=== PATIENT | male | born 1985 | race Two or more races ===

== ENCOUNTER 2016-11-21 15:11 | Emergency (ER) | payer SELFPAY ==
[~2016-11-21] VITALS: Ht 160 cm; Wt 63.5 kg
[2016-11-21 15:22] VITALS: BP 135/84
--- NOTE | 2016-11-21 15:51 | PHYS DOC ---
Past Medical History Past Medical History: No Pertinent History Additional Information: nonsmoker Alcohol Use: None Drug Use: None Adult General Chief Complaint Chief Complaint: EARACHE/EAR PAIN [facility] HPI Patient is a 31 year old male who presents with right ear pain and bilateral eye redness for 4 days. He reports a burning sensation in the eyes and clear drainage from the eyes. He denies fevers, sore throat, nasal congestion, cough, or vision changes. He denies any known sick contacts. He does not have a PCP. Review of Systems Review of Systems Constitutional: Denies fever or chills. [] Eyes: Denies change in visual acuity. Reports bilateral eye redness and pain. HENT: Denies nasal congestion or sore throat. Reports right ear pain. Respiratory: Denies cough or shortness of breath. [] Cardiovascular: Denies chest pain, palpitations or edema. [] GI: Denies abdominal pain, nausea, vomiting, bloody stools or diarrhea. [] Musculoskeletal: Denies back pain or joint pain. [] Integument: Denies rash or skin lesions. [] Neurologic: Denies headache, focal weakness or sensory changes. [] All systems reviewed and negative unless otherwise stated in the HPI. Allergies Allergies Allergies Coded Allergies Type Severity Reaction Last Updated Verified No Known Drug Allergies 11/21/16 No Physical Exam Physical Exam Constitutional: Well developed, well nourished, no acute distress, non-toxic appearance. [] HENT: Normocephalic, atraumatic, bilateral external ears normal, oropharynx moist, no oral exudates, nose normal. Bilateral TMs occluded by cerumen. Bilateral ear canals are otherwise clear of drainage. There is no posterior pharyngeal erythema or tonsillar edema. There is not significant swelling of the nasal turbinates. Eyes: PERRLA, EOMI, no discharge. Mild bilateral conjunctival injection. Neck: Normal range of motion, no tenderness, supple, no stridor. [] Cardiovascular:Heart rate regular rhythm, no murmur [] Lungs & Thorax: Bilateral breath sounds clear to auscultation [] Skin: Warm, dry, no erythema, no rash. [] Neurologic: Alert and oriented X 3, normal motor function, normal sensory function, no focal deficits noted. [] Psychologic: Affect normal, judgement normal, mood normal. [] EKG EKG [] Radiology/Procedures Radiology/Procedures [] Course & Med Decision Making Course & Med Decision Making Pertinent Labs and Imaging studies reviewed. (See chart for details) The patient presents with right ear pain. On exam, both TMs are occluded by cerumen. ED RN irrigated the ears to remove the cerumen. Reexamination after cerumen removal reveals left TM without erythema or bulging. The canal is not excoriated. The right TM is erythematous and bulging with mild excoriation of the right ear canal. The patient reports improved pain and hearing as well. He is discharged with prescription for amoxicillin. Return precautions were discussed. He verbalizes understanding and agrees with plan. Dragon Disclaimer Dragon Disclaimer This electronic medical record was generated, in whole or in part, using a voice recognition dictation system. Departure Departure Impression: Primary Impression: Otitis media Additional Impression: Cerumen impaction Disposition: 01 HOME, SELF-CARE Condition: IMPROVED Patient Instructions: Cerumen Impaction, Otitis Media, Adult, [id number] Additional Instructions: Please complete all of the prescribed antibiotics, even if you are feeling better. Return to the emergency department if you have any new or concerning symptoms. Scripts Amoxicillin 875 Mg Tablet1 Tab PO BID #20 TAB Prov:VIC LAWLER 11/21/16 Problem Qualifiers Primary Impression: Otitis media Otitis media type: suppurative Laterality: right Chronicity: acute Recurrence: not specified as recurrent Spontaneous tympanic membrane rupture: without spontaneous rupture Qualified Code: H66.001 - Acute suppurative otitis media without spontaneous rupture of ear drum, right ear Additional Impression: Cerumen impaction Laterality: bilateral Qualified Code: H61.23 - Impacted cerumen, bilateral VIC LAWLER Nov 21, 2016 15:51
[2016-11-21] MEDS ORDERED: AMOX875T PO (16:05)
== END 2016-11-21 16:15 | disposition home or self-care (01) ==
LOC: ER 15:11
DX: H66.001 Acute suppurative otitis media without spontaneous rupture of ear drum, right ear (principal); H61.23 Impacted cerumen, bilateral
CPT/HCPCS: 69209; 99283-25

== ENCOUNTER 2020-03-25 12:20 | Emergency (ER) | payer SELFPAY ==
[~2020-03-25] VITALS: Ht 157.5 cm; Wt 69.6 kg
[~2020-03-25 12:20] MED LIST: AMOX875T PO
[2020-03-25 13:00] VITALS: BP 136/90
--- NOTE | 2020-03-25 13:32 | PHYS DOC ---
Past Medical History Past Medical History: No Pertinent History Past Surgical History: No Surgical History Smoking Status: Never Smoker Alcohol Use: None Drug Use: None General Adult EDM: Chief Complaint: SKIN PROBLEM HPI: HPI: Patient is a 34 year old male who presents with 2 weeks of dorsal forearm bilateral arm ovular areas of small blisters and contact dermatitis and also on bilateral lower shins that is more sporadic. Patient states he is very itchy and alvarado at times. No associated cellulitis. Patient states that he has been out doing yard work but cannot remember exactly what he was doing before this started. No infection process seen. Denies fevers. Denies any discharge from the dermatitis area. And there is no discharge from the dermatitis seen. Review of Systems: Review of Systems: Integument: rash. [] Heart Score: Risk Factors: Risk Factors: DM, Current or recent (<one month) smoker, HTN, HLP, family history of CAD, obesity. Risk Scores: Score 0 - 3: 2.5% MACE over next 6 weeks - Discharge Home Score 4 - 6: 20.3% MACE over next 6 weeks - Admit for Clinical Observation Score 7 - 10: 72.7% MACE over next 6 weeks - Early Invasive Strategies Allergies: Allergies: Allergies Coded Allergies Type Severity Reaction Last Updated Verified No Known Drug Allergies 11/21/16 No Physical Exam: PE: Constitutional: Well developed, well nourished, no acute distress, non-toxic appearance. [] HENT: Normocephalic, atraumatic, bilateral external ears normal, oropharynx moist, no oral exudates, nose normal. [] Eyes: PERRLA, EOMI, conjunctiva normal, no discharge. [] Neck: Normal range of motion, no tenderness, supple, no stridor. [] Cardiovascular:Heart rate regular rhythm, no murmur [] Lungs & Thorax: Bilateral breath sounds clear to auscultation [] Abdomen: Bowel sounds normal, soft, no tenderness, no masses, no pulsatile masses. [] Skin: Warm, dry, no erythema, rash. [] Back: No tenderness, no CVA tenderness. [] Extremities: No tenderness, no cyanosis, no clubbing, ROM intact, no edema. [] Neurologic: Alert and oriented X 3, normal motor function, normal sensory function, no focal deficits noted. [] Psychologic: Affect normal, judgement normal, mood normal. [] Current Patient Data: Vital Signs: Vital Signs Date Time Temp Pulse Resp B/P (MAP) Pulse Ox O2 Delivery O2 Flow Rate FiO2 03/25/20 13:00 98.9 76 20 136/90 (105) 98 Room Air 98.9 EKG: EKG: [] Radiology/Procedures: Radiology/Procedures: [] Course & Med Decision Making: Course & Med Decision Making Pertinent Labs and Imaging studies reviewed. (See chart for details) No infectious process seen. Patient given Triamcinolone cream. [] Dragon Disclaimer: Dragon Disclaimer: This electronic medical record was generated, in whole or in part, using a voice recognition dictation system. Departure Departure Impression: Primary Impression: Contact dermatitis Qualified Codes: L23.9 - Allergic contact dermatitis, unspecified cause Disposition: HOME, SELF-CARE Condition: STABLE Referrals: NO PCP (PCP) Patient Instructions: Contact Dermatitis, [id number] Additional Instructions: Follow up with primary care provider. Use cream as prescribed. Scripts Betamethasone Dipropionate (BETAMETHASONE DIPROPIONATE) 15 Gm Cream..g. 1 SHARONDA TP BID for 7 Days, #45 GM 1 Refill Prov: REBECA LEE APRN 03/25/20 REBECA LEE APRN March 25, 2020 13:32
[2020-03-25] MEDS ORDERED: BETA15CR5 TP (13:36)
== END 2020-03-25 13:45 | disposition home or self-care (01) ==
LOC: ER 12:20
DX: L23.9 Allergic contact dermatitis, unspecified cause (principal)
CPT/HCPCS: 99283